=== PATIENT | male | born 1940 | race Caucasian/White ===

== ENCOUNTER 2016-02-14 06:46 | Day surgery (SDC) | payer MEDICARE, OTHER ==
[~2016-02-14] VITALS: Ht 182.9 cm; Wt 109.4 kg
[~2016-02-14 06:46] MED LIST: ASPIRIN81 MG PO; BAYER CHEWABLE81 MG PO; CARDURA1 MG PO; CORDARONE200 MG PO; EXFORGE 5-320 M1 TAB PO; FLOMAX0.4 MG PO; FLORAJEN3 CAPS460 MG PO; HYDROCODONE-APA1 TAB PO; KENALOG 0.1 % 115 GM; KLOR-CON 1010 MEQ PO; LASIX40 MG PO; MULTIPLE VITAMI1 TA1 PO; TESTOSTERON200 MG/ML IM; THERAGRAN M [BK1 TAB PO; VANCOMYCIN 1 GM/1 G1 IV; VIAGRA100 MG; VIBRAMYCIN 100100 MG PO; VITAMIN B-12250 MC3 PO; VITAMIN C250 MG PO; VYTORIN 10-20 M1 TAB PO
[2016-02-14 07:55] LABS: BASOPHILS 0.5 % (0.0-2.0); EOSINOPHILS 11.6 % (0-7); HEMATOCRIT 32.5 % (42.0-54.0); HEMOGLOBIN 10.4 g/dL (13.5-17.5); IMMATURE GRANULOCYTES 0.5 % (0-5); LYMPHOCYTES 19.9 % (15-50); MCH 27.8 pg (26.0-34.0); MCV 86.9 fL (80.0-100.0); MEAN PLATELET VOLUME 10.4 fL (7.4-10.4); MONOCYTES 11.5 % (2-11); PLATELET COUNT 211 10x3/uL (130-400); RBC 3.74 10x6/uL (4.20-6.10); RDW 14.3 % (11.5-14.5); WBC 6.6 10x3/uL (4.8-10.8)
[2016-02-14 08:05] LABS: CALCIUM 8.4 mg/dL (8.5-10.1); CARBON DIOXIDE 28.3 mmol/L (21.0-32.0); CREATININE - SERUM 1.5 mg/dL (0.6-1.3); POTASSIUM - SERUM 4.3 mmol/L (3.5-5.1); VANCOMYCIN - TROUGH 20.2 ug/mL (10.0-20.0)
--- NOTE | 2016-02-14 09:21 | NUR ---
0900-VANCOMYCIN TROUGH LEVEL SLIGHTLY ELEVATED--CALLED TO TONG HUDSON RN FOR DR ALVARADO. ORDERS RECD TO CONTINUE VANCOMYCON DOSAGE ORDERED.
[2016-02-14 10:01] VITALS: BP 166/87; Ht 182.9 cm; Wt 109.4 kg
--- NOTE | 2016-02-18 11:32 | OP ---
PATIENT NAME: MUSA GATES MEDICAL RECORD: [id number] :44 LOCATION:[facility] ADMISSION DATE: SURGEON: JAMES LANDEROS MD DATE OF OPERATION: 02/14/2016 SURGEON: James Landeros MD ANESTHESIA: General, Dr. Hilliard. OPERATION PERFORMED: Wound VAC dressing change. PREOPERATIVE DIAGNOSIS: Sternal dehiscence. POSTOPERATIVE DIAGNOSIS: Sternal dehiscence. INDICATION FOR OPERATION: Sternal dehiscence. FINDINGS AT OPERATION: Good granulation of the wound, clean without exudate. ESTIMATED BLOOD LOSS: None. DESCRIPTION OF PROCEDURE: After informed consent, adequate preoperative medication and evaluation, the patient was brought to the operating room, placed on the table in the supine position. After induction of general anesthesia and application of appropriate monitoring devices, chest prepped and draped in a sterile manner utilizing Betadine scrub, alcohol, and Betadine solution. A Betadine-impregnated drape was also used. The previous wound VAC had been removed. The white sponge was removed. The wound was irrigated and examined and expose wire was removed in the lower sternum. The wound was again irrigated. Instrument count and sponge count were correct times 2. A white dressing was placed in the depth of the wound, a small black sponge was then placed over this and a medium sponge placed in the major part of the wound. The dressing was applied. The device worked appropriately. The patient tolerated the procedure well and instrument counts and sponge counts were correct times 2. The patient returned to the postanesthesia recovery in satisfactory condition. TRANSINT:[id number] Voice Confirmation ID: [id number] DOCUMENT ID: [id number] JAMES LANDEROS MD at 1132 CC: [id number] DICTATION DATE: 02/14/16 1225 HEAD OF COMMISSION DEPARTMENT: 02/14/16 1234 [facility] 02/14/16 [place] [address]
== END 2016-02-14 13:57 | disposition home or self-care (01) ==
LOC: D.OPS 06:46
PROVIDERS: Internal Medicine Cardiovascular Disease
DX: T81.32XA Disruption of internal operation (surgical) wound, not elsewhere classified, initial encounter (principal)

== ENCOUNTER 2016-02-17 08:57 | Day surgery (SDC) | payer MEDICARE, OTHER ==
[~2016-02-17] VITALS: Ht 182.9 cm; Wt 108.0 kg
[2016-02-17 10:09] LABS: HEMATOCRIT 34.7 % (42.0-54.0); HEMOGLOBIN 11.1 g/dL (13.5-17.5); MCH 27.6 pg (26.0-34.0); MCV 86.3 fL (80.0-100.0); MEAN PLATELET VOLUME 10.3 fL (7.4-10.4); RBC 4.02 10x6/uL (4.20-6.10); RDW 14.3 % (11.5-14.5); WBC 6.2 10x3/uL (4.8-10.8)
[2016-02-17 10:12] VITALS: BP 143/94; Ht 182.9 cm; Wt 108.0 kg
[2016-02-17 10:18] LABS: ANION GAP 12.3 mmol/L (8-16); CALCIUM 9.6 mg/dL (8.5-10.1); CREATININE - SERUM 1.4 mg/dL (0.6-1.3); POTASSIUM - SERUM 4.3 mmol/L (3.5-5.1)
--- NOTE | 2016-02-17 14:06 | NUR ---
1350 REPORT FROM TOÑO ESCALANTE R.N. ASSESSED PATIENT RESTING WITH EYES CLOSED. RESP EVEN AND NONLABORED DENIES PAIN OR NAUSEA. HAS OWN WOUND VAC HOOKED TO CHEST AND WOUND AT CONTINUOUS SUCTION AT 75MMHG.
--- NOTE | 2016-02-17 15:39 | NUR ---
1500 DISCHARGE INSTRUCTIONS GIVEN AND VERBALLY UNDERSTANDS. HAS HOME HEALTH TO DO PICC LINE CARE AND OR DOES WOUND VAC DRESSING CHANGES. 1502 PICC RT ARM FLUSHED WITH SALINE AND HEPARIN FLUSH BOTH PORTS AND CAPPED WITH STERILE TECHNIQUE.1510 TO HOME WITH DAUGHTER.
--- NOTE | 2016-02-18 11:32 | OP ---
PATIENT NAME: MUSA GATES MEDICAL RECORD: [id number] :44 LOCATION:[facility] ADMISSION DATE: SURGEON: JAMES LANDEROS MD DATE OF OPERATION: 02/17/2016 SURGEON: James Landeros MD ANESTHESIA: General, Dr. Hilliard. OPERATION PERFORMED: Wound VAC dressing change. PREOPERATIVE DIAGNOSIS: Dehisced sternal wound. POSTOPERATIVE DIAGNOSIS: Dehisced sternal wound. INDICATION FOR OPERATION: Dehiscence of the sternal wound. FINDINGS AT OPERATION: Good granulation, good tissue base without exudate. ESTIMATED BLOOD LOSS: None. DESCRIPTION OF PROCEDURE: After informed consent, adequate preoperative medication evaluation, the patient was brought to the operating room, placed on the table in the supine position. After induction of general anesthesia and application of appropriate monitoring devices, the wound VAC dressing was removed. The patient prepped and draped in a sterile field, utilizing Betadine scrub, alcohol, and Betadine solution. A Betadine-impregnated drape was also used. The wound was examined and irrigated. There were no areas of debridement required. The wound was again irrigated. Instrument count and sponge count were correct times 2. A white sponge was placed in the depths of the wound over the right ventricle. A small sponge was then placed between the sternum and a superficial medium dressing sponge placed. The dressing was then placed and the device was tested. There was good suction without leak. The patient was awakened and transferred to postanesthesia recovery in satisfactory condition. TRANSINT:[id number] Voice Confirmation ID: [id number] DOCUMENT ID: [id number] JAMES LANDEROS MD at 1132 CC: [id number] DICTATION DATE: 02/17/16 1321 TRIMMING DEPARTMENT BLOCKER: 02/17/16 1440 [facility] 02/17/16 [place] [id number]
== END 2016-02-17 15:10 | disposition home or self-care (01) ==
LOC: D.OPS 08:57
PROVIDERS: Internal Medicine Cardiovascular Disease
DX: T81.31XA Disruption of external operation (surgical) wound, not elsewhere classified, initial encounter (principal)

== ENCOUNTER 2016-02-24 08:30 | Day surgery (SDC) | payer MEDICARE, OTHER ==
[~2016-02-24] VITALS: Ht 182.9 cm; Wt 108.9 kg
--- NOTE | ~2016-02-24 | HEMODYNAMI ---
PATIENT:MUSA GATES MEDICAL RECORD: [id number] : 44 [id number] ADMISSION DATE: 02/24/16 Generatedon:02/24/201614:20 Patient name: MUSA GATES Patient #: [id number] : 1940 Date of study: 02/24/2016 Page: Of Hemodynamic Procedure Report Patient Data Patient Demographics Procedure consent was obtained First Name: MUSA Gender: Male Last Name: YAJAIRA : 1940 [facility] Initial: R Age: 75 year(s) Patient #: [id number] Race: SSN: [id number] Additional ID: [id number] Contact details [address]: [address] [place] [address] State: [place] City: [place] Zip code: [address] Past Medical History Allergies: No known allergies Admission Admission Data Admission Date: 02/24/2016 Admission Time: 8:30 Procedure Procedure Types Cath Procedure Peripheral Cath Diagnostic Procedure US Vascular Access PICC PICC Line Placement Fluoro Fluoro Guidance Venous Device Procedure Description Procedure Date Procedure Date: 02/24/2016 Procedure Start Time: 14:05 Procedure End Time: 14:19 Procedure Staff Name Function Cricket Hernandez MD Performing Physician Robin Umanzor RT Scrub Eugenia Cleveland RN Nurse Jacqueline Raymond RT Pharmacy Services Director Jacqueline Raymond RT Monitor Procedure Data Cath Procedure Fluoroscopy Diagnostic fluoroscopy Total fluoroscopy Time: 0.4 time: 0.4 min min Diagnostic fluoroscopy Total fluoroscopy dose: dose: 13.5 mGy 13.5 mGy Procedure Medications Medication Administration Route Dosage Heparin Flush Bag added to field 1 bags (1000units/500ml NS) Lidocaine 1% added to field 20 Hemodynamics Rest Pre Cath Intra NCS Post Cath Vital Signs Time Heart Resp SPO2 NIBP (mmHg) Rhythm Pain Sedation Rate (ipm) (%) Status Level (bpm) 13:57:17 65 15 98 Measuring NSR 0 (11) 10(A) , No pain 13:57:34 66 17 97 155/86(136) NSR 0 (11) 10(A) , No pain 14:02:04 62 16 99 164/144(154) NSR 0 (11) 10(A) , No pain 14:06:20 69 16 99 154/94(129) NSR 0 (11) 10(A) , No pain 14:10:38 65 17 98 149/87(130) NSR 0 (11) 10(A) , No pain 14:14:52 65 18 98 147/88(129) NSR 0 (11) 10(A) , No pain 14:19:06 17 98 142/89(129) NSR 0 (11) 10(A) , No pain Medications Time Medication Route Dose Verified Delivered Reason Notes Effe ctiveness by by 13:43:29 Heparin Flush added 1 Eugenia Cricket used for Bag to bags King BOGDAN Hernandez procedure (1000units/500ml field ANGELO NS) 13:43:43 Lidocaine 1% added 20ml Eugenia Cricket for local to vial King BOGDAN Hernandez anesthetic field ANGELO Procedure Log Time Note 13:41:39 Time tracking: Regular hours 13:41:41 Cricket Hernandez MD sent for patient. Start room use. 13:41:49 Patient received from Outpatients to IR Alert and oriented. Tansferred to table in Supine position. 13:42:01 Signed procedure consent form obtained from verbally. 13:42:03 Pre-procedure instructions explained to patient. 13:42:59 Use device set PICC 13:43:01 Bag Decanter opened to sterile field. 13:43:02 Sterile Angiographic Pack opened to sterile field. 13:43:02 SorbaView Shield opened to sterile field. 13:43:05 Pre-op teaching completed and patient verbalized understanding. 13:43:10 Patient pain scale 0/10 ?. 13:43:15 Right Arm area was prepped with chlora-prep and draped in sterile fashion 13:43:25 PowerPICC 5Fr double lumen catheter opened to sterile field. 13:43:29 Heparin Flush Bag (1000units/500ml NS) 1 bags added to field was given by Cricket Hernandez MD; used for procedure; 13:43:43 Lidocaine 1% 20ml vial added to field was given by Cricket Hernandez MD; for local anesthetic; 13:43:52 Sedation plan: Local Anesthetic Lidocaine 13:43:54 Sharps counted by scrub and verified by R.N. 13:53:42 Full Disclosure recording started 13:55:28 Vital chart was started 14:01:59 Physician arrived 14:02:37 --------ALL STOP TIME OUT------ 14:02:39 Final Timeout: patient, procedure, and site verified with staff and physician. All members of the team are in agreement. 14:03:49 Procedure started. 14:05:07 Local anesthetic to right arm with Lidocaine 1% by Cricket Hernandez MD.INITIAL ACCESS ONLY 14:10:17 Venous access obtained using ultrasound guidance. 14:10:20 PICC line was trimmed to 40cm and advanced to the superior vena cava.Position verified under fluoroscopy. 14:12:52 Prexisting PICC was removed. Length was 40cm. 14:13:18 Fluoroscopy time 00.40 minutes. 14:13:22 Flurop Dose total: 13.5 14:13:22 Fluoroscopy dose: 13.5 mGy 14:14:56 SUTURE ETHILON 2-0 BLK MONO FS opened to sterile field. 14:16:09 PICC was secured to the right arm by 2.0 Ethilon sutures. 14:16:17 Sharps counted by scrub and verified by R.N. 14:16:19 Procedure ended.(Physican Out) 14:17:20 PICC was covered with a sorbaview and tegaderm. 14:18:59 Post procedure instruction explained to patient.Patient verbalizes understanding. 14:19:02 Procedure and supply charges have been captured, reviewed, submitted and are correct. 14:19:03 See physician's report for complete and final results. 14:19:09 Report given to Outpatients. 14:19:17 Patient transfered to Outpatients with Bed. 14:19:20 Procedure ended. 14:19:20 Full Disclosure recording stopped 14:19:43 End room use (Document Last) 14:20:06 Vital chart was stopped Device Usage Item Name Manufacture Quantity Catalog Hospital Part Current Minimal Lot# / Number Charge Number Stock Stock Serial# Code Bag Decanter Microtek 1 [id number] 5 [employer] Sterile Cardinal 1 [id number] Angiographic Health Pack SorbaView Centurion 1 [id number] 142775 [id number] [id number] 5 Shield [place] [address] [id number] 141688 [id number] 5 5Fr double lumen catheter SUTURE Ethicon 1 664 [id number] [id number] 5 ETHILON 2-0 BLK MONO FS Signature Audit [place] Stage Time Signature Unsigned Intra-Procedure 02/24/2016 Jacqueline Raymond 2:20:03 PM RT(R) Signatures Monitor : Jacqueline Raymond Signature : RT Date : Time : [place] [id number] [place] [address]
[2016-02-24 10:01] VITALS: BP 162/85; Ht 182.9 cm; Wt 108.9 kg
[2016-02-24 10:24] LABS: HEMATOCRIT 32.7 % (42.0-54.0); HEMOGLOBIN 10.3 g/dL (13.5-17.5); MCH 27.5 pg (26.0-34.0); MCHC 31.5 g/dL (31.0-37.0); MCV 87.2 fL (80.0-100.0); MEAN PLATELET VOLUME 10.7 fL (7.4-10.4); RBC 3.75 10x6/uL (4.20-6.10); RDW 14.3 % (11.5-14.5); WBC 5.7 10x3/uL (4.8-10.8)
[2016-02-24 10:34] LABS: ANION GAP 12.5 mmol/L (8-16); CALCIUM 9.5 mg/dL (8.5-10.1); CARBON DIOXIDE 29.2 mmol/L (21.0-32.0); CREATININE - SERUM 1.4 mg/dL (0.6-1.3); POTASSIUM - SERUM 4.7 mmol/L (3.5-5.1)
--- NOTE | 2016-02-24 19:27 | NUR ---
1430 TO FROM SPECIAL ,PICC LINE INPLACE, WOUND VAC INPLACE WITH GOOD SEAL IN USE . 1600 PICC LINE FLUSH WITH HEPRAIN AND CAPPED WAITIMG ON RIDE
--- NOTE | 2016-02-25 12:20 | OP ---
PATIENT NAME: MUSA GATES MEDICAL RECORD: [id number] :44 LOCATION:[facility] ADMISSION DATE: SURGEON: JAMES LANDEROS MD DATE OF OPERATION: 02/24/2016 SURGEON: James Landeros MD ANESTHESIA: General, Dr. Segovia. OPERATION PERFORMED: Wound VAC dressing change. PREOPERATIVE DIAGNOSIS: Sternal dehiscence. POSTOPERATIVE DIAGNOSIS: Sternal dehiscence. INDICATION FOR OPERATION: Wound VAC change. FINDINGS AT OPERATION: Good granulation in the wound. There was no necrotic area and no hardware noted. The patient is to have flap coverage by Dr. Moss in [place] in several days. ESTIMATED BLOOD LOSS: None. DESCRIPTION OF PROCEDURE: After informed consent, adequate preoperative medication evaluation, the patient was brought to the operating room, placed on the table in the supine position. After induction of general anesthesia and application of appropriate monitoring devices, the patient prepped and draped in a sterile field, utilizing Betadine scrub, alcohol, and Betadine solution. A Betadine-impregnated drape was also used. The previous sponges had been removed. The wound was examined and irrigated. There were no areas of necrosis and good granulation tissue throughout the wound. A white sponge was placed over the heart, followed by a small black sponge and a larger black sponge tailored to fit the wound. The dressing was then applied with good suction. The patient tolerated the procedure well and was transferred to postanesthesia recovery in satisfactory condition. TRANSINT:[id number] Voice Confirmation ID: [id number] DOCUMENT ID: [id number] JAMES LANDEROS MD at 1220 CC: [id number] DICTATION DATE: 02/24/16 1302 MICROWAVE REMOTE SENSING SCIENTIST: 02/24/16 1352 [facility] 02/24/16 [place] [id number]
== END 2016-02-24 16:24 | disposition home or self-care (01) ==
LOC: D.OPS 08:30
PROVIDERS: Internal Medicine Cardiovascular Disease
DX: T81.31XA Disruption of external operation (surgical) wound, not elsewhere classified, initial encounter (principal)

== ENCOUNTER → 2016-04-05 12:42 | Outpatient (CLI) | payer MEDICARE, OTHER ==
[2016-02-24 10:01] VITALS: BMI 32.6
[2016-04-05 12:58] LABS: HEMATOCRIT 32.9 % (42.0-54.0); HEMOGLOBIN 10.7 g/dL (13.5-17.5); MCH 26.8 pg (26.0-34.0); MCHC 32.5 g/dL (31.0-37.0); MCV 82.3 fL (80.0-100.0); MEAN PLATELET VOLUME 9.4 fL (7.4-10.4); RDW 14.8 % (11.5-14.5); WBC 6.1 10x3/uL (4.8-10.8)
[2016-04-05 13:04] LABS: ANION GAP 13.1 mmol/L (8-16); CALCIUM 9.9 mg/dL (8.5-10.1); CARBON DIOXIDE 29.1 mmol/L (21.0-32.0); CREATININE - SERUM 1.4 mg/dL (0.6-1.3); POTASSIUM - SERUM 4.2 mmol/L (3.5-5.1)
== END | disposition home or self-care (01) ==
LOC: D.LAB 08:15
PROVIDERS: Internal Medicine Cardiovascular Disease
DX: D64.9 Anemia, unspecified (principal); E87.6 Hypokalemia

== ENCOUNTER → 2016-12-19 08:23 | Outpatient (CLI) | payer MEDICARE, OTHER ==
[2016-02-24 10:01] VITALS: BMI 32.6
[~2016-12-19 08:23] MED LIST changes: +FUROSEMIDE20 MG PO; +LOPRESSOR25 MG PO; +ZETIA10 MG PO; +ZOCOR40 MG PO
== END | disposition home or self-care (01) ==
LOC: D.MRI 08:23
DX: M25.511 Pain in right shoulder (principal)

== ENCOUNTER 2017-01-01 08:22 | Day surgery (SDC) | payer MEDICARE, OTHER ==
[~2017-01-01] VITALS: Ht 182.9 cm; Wt 118.2 kg
[~2017-01-01 08:22] MED LIST changes: -FUROSEMIDE20 MG PO; -LOPRESSOR25 MG PO; -ZETIA10 MG PO; -ZOCOR40 MG PO
[2017-01-01] MEDS ORDERED: FUROSEMIDE20 MG PO (09:04)
[2017-01-01] MEDS ORDERED: BAYER CHEWABLE81 MG PO (09:05)
[2017-01-01 09:08] LABS: BASOPHILS 0.2 % (0-2); EOSINOPHILS 5.1 % (0-7); HEMATOCRIT 42.6 % (42.0-54.0); HEMOGLOBIN 13.6 g/dL (13.5-17.5); IMMATURE GRANULOCYTES 0.2 % (0-5); LYMPHOCYTES 20.9 % (15-50); MCH 27.4 pg (26.0-34.0); MCHC 31.9 g/dL (31.0-37.0); MCV 85.9 fL (80.0-100.0); MEAN PLATELET VOLUME 10.2 fL (7.4-10.4); MONOCYTES 11.2 % (2-11); NEUTROPHILS 62.4 % (40-80); PLATELET COUNT 165 10x3/uL (130-400); RBC 4.96 10x6/uL (4.20-6.10); RDW 16.3 % (11.5-14.5); WBC 6.1 10x3/uL (4.8-10.8)
[2017-01-01] MEDS ORDERED: ZETIA10 MG PO (09:08)
[2017-01-01] MEDS ORDERED: LOPRESSOR25 MG PO (09:08)
[2017-01-01] MEDS ORDERED: ZOCOR40 MG PO (09:08)
[2017-01-01 09:14] LABS: ANION GAP 12.3 mmol/L (8-16); CALCIUM 8.8 mg/dL (8.5-10.1); CARBON DIOXIDE 29.5 mmol/L (21.0-32.0); CREATININE - SERUM 1.3 mg/dL (0.6-1.3); POTASSIUM - SERUM 3.8 mmol/L (3.5-5.1)
[2017-01-01 09:26] VITALS: BP 158/82; Ht 182.9 cm; Wt 118.2 kg
--- NOTE | 2017-01-01 11:40 | NUR ---
PT REC'D TO ROOM. DROWSY, BUT RESPONDS TO VERBAL STIMULI. LEMON SHAKTOOLIK SODA REQUESTED AND PROVIDED.
--- NOTE | 2017-01-01 12:00 | NUR ---
PT TOLERATED FULL LIQUID DIET.
--- NOTE | 2017-01-01 12:30 | NUR ---
D/C INSTRUCTIONS EXPLAINED TO PT. VOICED UNDERSTANDING. COPIES OF ALL GIVEN.
--- NOTE | 2017-01-01 12:45 | NUR ---
D/C'D HOME VIA W/C TO PRIVATE CAR.
--- NOTE | 2017-01-08 15:43 | HP ---
PATIENT: MUSA GATES MEDICAL RECORD: [id number] ACCOUNT: [id number] LOCATION:[facility] : 44 ADMISSION DATE: 01/01/17 HISTORY AND PHYSICAL EXAMINATION CHIEF COMPLAINT: History of colon polyps. HISTORY OF PRESENT ILLNESS: The patient is here for surveillance colonoscopy. He has had no symptoms. ALLERGIES: No known drug allergies. HOME MEDICATIONS: Cardura, Damon, Klor-Con, testosterone, Zetia, Zocor, aspirin, Lasix, multivitamin, Toprol. SOCIAL HISTORY: Nonsmoker. PAST MEDICAL AND SURGICAL HISTORY: Bronchitis, sleep apnea, coronary artery disease, hypertension, history of CABG times 5, history of hernia repair, history of bladder surgery, history of wound VACs, history of appendectomy, history vasectomy, history of cholecystectomy, history of muscle flap. REVIEW OF SYSTEMS: Negative for CVA or seizures. Negative for diabetes or thyroid problems. PHYSICAL EXAMINATION: GENERAL: The patient does not appear acutely ill. He does not appear chronically ill. VITAL SIGNS: Reviewed. EARS: External ears appear normal. EYES: Extraocular movements are intact. NECK: Trachea is midline. CHEST: No intercostal retractions. PULMONARY: Nonlabored. No stridor. IMPRESSION: History of colon polyps. PLAN: Will be surveillance colonoscopy. TRANSINT:[id number] Voice Confirmation ID: [id number] DOCUMENT ID: [id number] CC: Dr. Mendoza, not found. EILEEN CHRISTIAN MD at 1543 CC: SLADE BULLOCK MD and JAMES ALVARADO MD [id number] DICTATION DATE: 01/01/17 1038 SUPERVISOR PIPE JOINTS: 01/01/17 1107 [facility] 01/01/17 [place] [id number] [place] [address]
--- NOTE | 2017-01-08 15:43 | OP ---
PATIENT NAME: MUSA GATES MEDICAL RECORD: [id number] :44 LOCATION:[facility] ADMISSION DATE: SURGEON: CHAVEZ CHRISTIAN MD DATE OF OPERATION: 01/01/2017 PREOPERATIVE DIAGNOSIS: History of colon polyps, in need of a surveillance colonoscopy. POSTOPERATIVE DIAGNOSES: History of colon polyps, in need of a surveillance colonoscopy, with 5 colon and rectal polyps, all sessile. Enlarged internal and external hemorrhoids. PROCEDURES: 1. Total colonoscopy to cecum. 2. Hot biopsy forceps polypectomies times 5. SURGEON: Chavez Christian MD SALES AND TRAINING SPECIALIST: None. BLOOD LOSS: Minimal. ANESTHESIA: IV sedation. COMPLICATIONS: None. The risks, possible complications, and alternatives to the procedure were explained to the patient. A consent form was signed. ENDOSCOPIC COURSE: The patient was conveyed to the GI lab on 01/01/2017. IV sedation was induced by the anesthesia staff. The patient was placed in the [place] position. A digital rectal examination was performed. Prostate was enlarged, but symmetric and without nodules. A colonoscope was inserted through the anus. It was easily advanced to the cecum. The prep was adequate. Upon withdrawal, I slowly withdrew the endoscope. I irrigated and aspirated extensively. I dragged the folds. A combination of direct imaging as well as narrow band imaging was utilized. Five colorectal polyps were noted. These were incised from 7 mm to 1.0 cm. None of these were pedunculated. A retroflexed view was obtained in the rectum. I then un-retroflexed the scope and removed it under direct vision. PLAN: I will plan to see the patient in my office in 2-3 weeks. I will plan for his next colonoscopy to take place in 3 years. TRANSINT:[id number] Voice Confirmation ID: [id number] DOCUMENT ID: [id number] OPERATIVE REPORT [id number] GATESMUSA ROBERT MD at 1543 CC: SLADE BULLOCK MD [id number] DICTATION DATE: 01/01/177 AUTOMATIC CLIPPER AND STRIPPER: 01/01/17 1214 [facility] 01/01/17 [place] [address]
== END 2017-01-01 12:45 | disposition home or self-care (01) ==
LOC: D.OPS 08:22
PROVIDERS: Anesthesiology
DX: Z12.11 Encounter for screening for malignant neoplasm of colon (principal); D12.2 Benign neoplasm of ascending colon; D12.0 Benign neoplasm of cecum; D12.4 Benign neoplasm of descending colon; K63.5 Polyp of colon; K62.1 Rectal polyp; K64.8 Other hemorrhoids; K64.4 Residual hemorrhoidal skin tags; Z86.010 Personal history of colon polyps; N40.0 Benign prostatic hyperplasia without lower urinary tract symptoms; G47.30 Sleep apnea, unspecified; I25.10 Atherosclerotic heart disease of native coronary artery without angina pectoris; Z95.1 Presence of aortocoronary bypass graft; I10 Essential (primary) hypertension; Z79.891 Long term (current) use of opiate analgesic; Z79.890 Hormone replacement therapy; Z79.82 Long term (current) use of aspirin; Z79.899 Other long term (current) drug therapy; Z01.812 Encounter for preprocedural laboratory examination

== ENCOUNTER 2017-01-14 10:12 | Day surgery (SDC) | payer MEDICARE, OTHER ==
[2017-01-11 08:19] LABS: HEMATOCRIT 40.8 % (42.0-54.0); HEMOGLOBIN 13.3 g/dL (13.5-17.5); MCH 27.3 pg (26.0-34.0); MCHC 32.6 g/dL (31.0-37.0); MCV 83.6 fL (80.0-100.0); MEAN PLATELET VOLUME 9.3 fL (7.4-10.4); RBC 4.88 10x6/uL (4.20-6.10); RDW 16.4 % (11.5-14.5); WBC 7.3 10x3/uL (4.8-10.8)
[2017-01-11 08:21] LABS: ANION GAP 12.6 mmol/L (8-16); CALCIUM 8.5 mg/dL (8.5-10.1); CARBON DIOXIDE 27.9 mmol/L (21.0-32.0); CREATININE - SERUM 1.2 mg/dL (0.6-1.3); POTASSIUM - SERUM 3.5 mmol/L (3.5-5.1)
[~2017-01-14] VITALS: Ht 182.9 cm; Wt 113.4 kg
[~2017-01-14 10:12] MED LIST changes: +FUROSEMIDE20 MG PO; +LOPRESSOR25 MG PO; +ZETIA10 MG PO; +ZOCOR40 MG PO
[2017-01-14 13:49] VITALS: BP 177/91; Ht 182.9 cm; Wt 113.4 kg
[2017-01-14] MEDS ORDERED: HYDROCODONE-APA1 TAB PO (16:44)
--- NOTE | 2017-01-28 17:58 | OP ---
PATIENT NAME: MUSA GATES MEDICAL RECORD: [id number] :44 LOCATION:[facility] ADMISSION DATE: SURGEON: MANDO EVANS MD DATE OF OPERATION: 01/14/2017 DATE OF OPERATION: 01/14/2017 PREOPERATIVE DIAGNOSES: Rotator cuff tear of the right shoulder, impingement syndrome and acromioclavicular arthritis. POSTOPERATIVE DIAGNOSES: Rotator cuff tear of the right shoulder, impingement syndrome and acromioclavicular arthritis. PROCEDURES: 1. Arthroscopic rotator cuff repair. 2. Arthroscopic distal clavicle excision done through separate incision - 1 cm. 3. Arthroscopic subacromial decompression, acromioplasty and bursectomy. SURGEON: Mando Evans MD ANESTHESIA: General. INTRAOPERATIVE COMPLICATIONS: None. SUMMARY OF PATHOLOGIC FINDINGS: The patient had consistent findings that are consistent with the preoperative MRI. Intraoperative photographs were taken of the full thickness rotator cuff tear. The patient had excoriation of the coracoacromial ligament as well as AC arthropathy. OPERATIVE SUMMARY IN DETAIL: After obtaining the appropriate preoperative orthopedic surgery consent as well as anesthetic consultation, evaluation and clearance, the patient was brought to the operating room and placed on the operating table in supine position. After general laryngeal mask airway was administered, the patient was placed in left lateral decubitus position. All pressure points were well padded to include down leg peroneal pad as well as axillary roll. The patient was held firmly to the operating table using the vacuum pack suction system. Right upper extremity and shoulder were prepped and draped in routine sterile fashion. The arm was held in the Arthrex traction boom at 30 degrees of forward flexion, 30 degrees of abduction, 10 pounds of traction laterally. Arthroscopy was established in the glenohumeral joint from posterior portal. Anterior portal was established in the anterior safe interval. Diagnostic arthroscopy did reveal the above findings. A transarthroscopic rotator cuff portal was created for debridement of the cuff footprint on the closest to the articular side. Attention was then turned to the subacromial space. [place] tissue ablation system was utilized to denude the undersurface of the acromion of all soft tissue elements and release coracoacromial ligament. A 5-0 barrel bur was used to perform acromioplasty at the level of acromioclavicular joint. Through a separate anterior arthroscopic portal, the distal clavicle was excised for 1 cm and the medial osteophytes of the AC joint on the acromion were taken down as well. Having completed this, attention was turned to the rotator cuff. Further decortication was carried out on the lateral aspect of the supraspinatus tendinous footprint. A single #2 FiberWire and FiberTape was placed in an inverted mattress fashion and then anchored laterally with a 5.5 SwiveLock from Arthrex. Having completed this, arthroscopy portals were closed in routine interrupted fashion using 4-0 OPERATIVE REPORT [id number] MUSA GATES Prolene. Sterile dressings were applied. The patient was awakened and taken to the recovery room in stable condition. All final needle and sponge counts were correct. TRANSINT:[id number] Voice Confirmation ID: [id number] DOCUMENT ID: [id number] CRISTINA ANGELO, MANDO MCCOLLUM at 1758 CC: [id number] DICTATION DATE: 01/28/17 1532 LABORER AIRPORT MAINTENANCE: 01/28/17 1632 [facility] 01/14/17 [facility] [address] [place] [address]
== END 2017-01-14 19:00 | disposition home or self-care (01) ==
LOC: D.OPS 10:12 → D.PAN 12:15 → D.OPS 12:45
PROVIDERS: Anesthesiology
DX: M75.101 Unspecified rotator cuff tear or rupture of right shoulder, not specified as traumatic (principal); M75.41 Impingement syndrome of right shoulder; M19.011 Primary osteoarthritis, right shoulder; I25.10 Atherosclerotic heart disease of native coronary artery without angina pectoris; I10 Essential (primary) hypertension; G47.30 Sleep apnea, unspecified; E66.01 Morbid (severe) obesity due to excess calories; Z68.34 Body mass index [BMI] 34.0-34.9, adult; Z01.812 Encounter for preprocedural laboratory examination

== ENCOUNTER → 2019-01-14 13:02 | Outpatient (CLI) | payer MEDICARE, OTHER ==
[2017-01-14 13:49] VITALS: BMI 34.0
--- NOTE | 2019-01-14 14:20 | NUR ---
TIME OUT PERFORMED @ [address] KENNEDY & EDGAR DASH RTR. PATIENT, , & PROCEDURE VERIFIED.
== END | disposition home or self-care (01) ==
LOC: D.RAD 13:02
PROVIDERS: ATTEND Orthopaedic Surgery
DX: M75.122 Complete rotator cuff tear or rupture of left shoulder, not specified as traumatic (principal)

== ENCOUNTER 2019-02-16 08:10 | Day surgery (SDC) | payer MEDICARE, OTHER ==
[2019-02-13 10:27] LABS: HEMATOCRIT 40.8 % (42.0-54.0); HEMOGLOBIN 13.3 g/dL (13.5-17.5); MCH 28.2 pg (26.0-34.0); MCHC 32.6 g/dL (31.0-37.0); MCV 86.4 fL (80.0-100.0); MEAN PLATELET VOLUME 9.8 fL (7.4-10.4); RBC 4.72 10x6/uL (4.20-6.10); RDW 14.3 % (11.5-14.5); WBC 7.2 10x3/uL (4.8-10.8)
[2019-02-13 10:32] LABS: ANION GAP 12.9 mmol/L (8-16); CALCIUM 8.9 mg/dL (8.5-10.1); CARBON DIOXIDE 30.9 mmol/L (21.0-32.0); CREATININE - SERUM 1.6 mg/dL (0.6-1.3); POTASSIUM - SERUM 3.8 mmol/L (3.5-5.1)
[~2019-02-16] VITALS: Ht 182.9 cm; Wt 122.5 kg
[~2019-02-16 08:10] MED LIST changes: +ANASTROZOLE PO; +TESTOSTERONE IM
[2019-02-16 08:54] VITALS: BP 141/75; Ht 182.9 cm; Wt 122.5 kg
[2019-02-16] MEDS ORDERED: HYDROCODON-ACE1 EA10 PO (12:07)
--- NOTE | 2019-02-19 10:27 | OP ---
PATIENT NAME: MUSA GATES MEDICAL RECORD: [id number] :44 LOCATION:[facility] ADMISSION DATE: SURGEON: CRISTINA ANGELO, MANDO MCCOLLUM DATE OF OPERATION: 02/16/2019 PREOPERATIVE DIAGNOSES: 1. Impingement syndrome of the left shoulder. 2. Rotator cuff tear of the left shoulder. POSTOPERATIVE DIAGNOSES: 1. Impingement syndrome of the left shoulder. 2. Rotator cuff tear of the left shoulder. 3. Severe biceps tendinitis. PROCEDURES: 1. Open rotator cuff repair. 2. Arthroscopic biceps tenodesis. 3. Arthroscopic distal clavicle excision done through separate incision x1. 5. Arthroscopic subacromial decompression with acromioplasty and bursectomy. SURGEON: Mando Evans MD ANESTHESIA: General. INTRAOPERATIVE COMPLICATIONS: None. SUMMARY OF PATHOLOGIC FINDINGS: Consistent with the preoperative diagnosis made a very large rotator cuff tear. The biceps tendon was in very bad shape with a greater than 50% thickness tearing. A decision made to do a biceps tenodesis along with an open rotator cuff repair using double row fixation. The patient had a downward sloping acromion with excoriation of the coracoacromial ligament as well as grade IV chondromalacia distal clavicle. OPERATIVE SUMMARY IN DETAIL: After obtaining the appropriate preoperative orthopedic surgery consents as well as anesthetic consultation, evaluation and clearance, the patient was brought to the operating room and placed on the operating table in supine position. After general laryngeal mask airway was administered, the patient was placed in right lateral decubitus position. All pressure points well padded to include down leg peroneal pad as well as axillary roll. The patient was held firmly to the operating table using vacuum pack suction system. Left upper extremity and shoulder were prepped and draped in routine sterile fashion. The arm was held in the [employer] traction boom at 30 of flexion, 30 degrees of abduction with 10 pounds of traction laterally. At this point, the appropriate surgical timeout was taken and agreed upon by all. Arthroscopy was established in the glenohumeral joint for postoperative posterior portal. Anterior portal was established in the anterior safe interval. Diagnostic arthroscopy did reveal the above findings. Accessory tertiary portal was created for debridement of the rotator cuff tear and excoriation of the greater tuberosity of the supraspinatus tendinous explant. At this point, the biceps tendon was tied with multiple passes using the [employer] TightRope using the scorpion passer. The biceps tendon was then released at the bicipital labral junction. A guide pin was then put into place under direct visualization followed by creating the extra single cortical hole for the size 8 biceps tenodesis. Tenodesis screw was then put into place with excellent position and placement. Excess biceps tendon was removed. At this point, the OPERATIVE REPORT [id number] MUSA GATES R lateral and based incision was made, taken down to the level of the rotator cuff tear. Further decortication was then followed by placement of the proximal row screws of the [employer] double row construct. These were then placed through the rotator cuff tear. The single tail swage was then split into 2 tails crisscross was done in the usual fashion and then anchored laterally with a lateral row. This resulted in excellent fixation was one small dog ear. The #2 FiberWire from the posterior lateral anchor was then utilized to pass through the dog ear was anchored again laterally using a 4.75 self-punching SwiveLock from [employer]. Having completed this, the wound was copiously irrigated and closed in the usual fashion by Jose Mireles APN with #1 Vicryl followed by 2-0 Vicryl and 4-0 Prolene. Sterile dressings were applied. The patient was awakened and taken to the recovery room in stable condition. All final needle and sponge counts were correct. TRANSINT:[id number] Voice Confirmation ID: [id number] DOCUMENT ID: [id number] CRISTINA ANGELO, MANDO MCCOLLUM at 1027 CC: [id number] DICTATION DATE: 02/16/19 1216 TELLER VAULT: 02/16/19 1647 [facility] 02/16/19 [facility] [address] [place] [address]
== END 2019-02-16 15:10 | disposition home or self-care (01) ==
LOC: D.OPS 08:10 → D.PAN 11:10 → D.OPS 11:10 → D.PAN 12:30 → D.OPS 13:00
PROVIDERS: Anesthesiology; ATTEND Orthopaedic Surgery
DX: M75.122 Complete rotator cuff tear or rupture of left shoulder, not specified as traumatic (principal); M75.42 Impingement syndrome of left shoulder; M75.22 Bicipital tendinitis, left shoulder; E78.5 Hyperlipidemia, unspecified; I10 Essential (primary) hypertension; I25.10 Atherosclerotic heart disease of native coronary artery without angina pectoris

== ENCOUNTER 2020-06-30 11:32 | Emergency (ER) | payer MEDICARE, OTHER ==
[~2020-06-30] VITALS: Ht 182.9 cm; Wt 127.3 kg
[~2020-06-30 11:32] MED LIST changes: +HYDROCODON-ACE1 EA10 PO
[2020-06-30 11:35] VITALS: Ht 182.9 cm; Wt 127.3 kg
[2020-06-30 11:59] VITALS: BP 127/88
[2020-06-30 12:03] LABS: BASOPHILS 0.9 % (0-2); HEMATOCRIT 36.3 % (42.0-54.0); HEMOGLOBIN 10.9 g/dL (13.5-17.5); LYMPHOCYTES 17.6 % (15-50); MCH 20.5 pg (26.0-34.0); MCV 68.3 fL (80.0-100.0); MEAN PLATELET VOLUME 7.7 fL (7.4-10.4); MONOCYTES 13.4 % (2-11); NEUTROPHILS 64.1 % (40-80); PLATELET COUNT 252 10x3/uL (130-400); RBC 5.31 10x6/uL (4.20-6.10); WBC 5.7 10x3/uL (4.8-10.8)
[2020-06-30 12:06] LABS: CALC OSMOLALITY 273 mosm/kg (275-300); CALCIUM 9.3 mg/dL (8.5-10.1); CARBON DIOXIDE 30.2 mmol/L (21.0-32.0); CHLORIDE - SERUM 98 mmol/L (98-107); CREATININE - SERUM 1.8 mg/dL (0.6-1.3); GLUCOSE 117 mg/dL (74-106); POTASSIUM - SERUM 3.3 mmol/L (3.5-5.1); SODIUM 137 mmol/L (136-145); UREA NITROGEN 10 mg/dL (7-18); eGFR NON AFRICAN AMERICAN 39 mL/min (90-120)
[2020-06-30 12:09] LABS: APTT 30.9 SECONDS (22.8-39.4); INR 1.19 (0.85-1.17)
[2020-06-30 12:23] LABS: ALBUMIN 3.7 g/dL (3.4-5.0); ALKALINE PHOSPHATASE 87 U/L (30-120); ALT (SGPT) 32 U/L (10-68); BILIRUBIN - TOTAL 0.83 mg/dL (0.2-1.3); CKMB 9.3 U/L (0.0-3.6); CREATINE KINASE 238 UL (21-232); PROTEIN - SERUM 7.3 g/dL (6.4-8.2); TROPONIN-I 0.019 ng/mL (0.000-0.060)
[2020-06-30] MEDS ORDERED: CARDIZEM CD180 MG PO (14:05)
[2020-06-30] MEDS ORDERED: TOPROL XL50 MG PO (14:05)
== END 2020-06-30 15:03 | disposition home or self-care (01) ==
LOC: D.ER 11:32
PROVIDERS: Emergency Medicine
DX: I48.91 Unspecified atrial fibrillation (principal); I10 Essential (primary) hypertension; R06.02 Shortness of breath

== ENCOUNTER 2020-08-05 07:57 | Emergency (ER) | payer MEDICARE, OTHER ==
[~2020-08-05] VITALS: Ht 182.9 cm; Wt 127.3 kg
[~2020-08-05 07:57] MED LIST changes: +CARDIZEM CD180 MG PO; +TOPROL XL50 MG PO
[2020-08-05 08:04] VITALS: Ht 182.9 cm; Wt 127.3 kg
[2020-08-05 08:46] LABS: BASOPHILS 0.1 % (0-2); EOSINOPHILS 2.6 % (0-7); HEMATOCRIT 35.1 % (42.0-54.0); HEMOGLOBIN 10.7 g/dL (13.5-17.5); LYMPHOCYTES 7.4 % (15-50); MCH 20.8 pg (26.0-34.0); MCHC 30.4 g/dL (31.0-37.0); MCV 68.3 fL (80.0-100.0); MEAN PLATELET VOLUME 7.8 fL (7.4-10.4); MONOCYTES 11.6 % (2-11); NEUTROPHILS 78.3 % (40-80); PLATELET COUNT 231 10x3/uL (130-400); RBC 5.13 10x6/uL (4.20-6.10); RDW 19.5 % (11.5-14.5); WBC 9.3 10x3/uL (4.8-10.8)
[2020-08-05 09:02] LABS: CALC OSMOLALITY 271 mosm/kg (275-300); CALCIUM 9.1 mg/dL (8.5-10.1); CARBON DIOXIDE 31.2 mmol/L (21.0-32.0); CHLORIDE - SERUM 98 mmol/L (98-107); CREATININE - SERUM 1.8 mg/dL (0.6-1.3); GLUCOSE 129 mg/dL (74-106); POTASSIUM - SERUM 3.6 mmol/L (3.5-5.1); SODIUM 135 mmol/L (136-145); UREA NITROGEN 12 mg/dL (7-18); eGFR NON AFRICAN AMERICAN 39 mL/min (90-120)
[2020-08-05 09:21] LABS: ALBUMIN 3.8 g/dL (3.4-5.0); ALKALINE PHOSPHATASE 85 U/L (30-120); ALT (SGPT) 27 U/L (10-68); BILIRUBIN - TOTAL 1.22 mg/dL (0.2-1.3); CKMB 3.9 U/L (0.0-3.6); CREATINE KINASE 235 UL (21-232); PROTEIN - SERUM 7.2 g/dL (6.4-8.2)
[2020-08-05 09:27] LABS: TROPONIN-I < 0.017 ng/mL (0.000-0.060)
[2020-08-05] MEDS ORDERED: CLINDAMYCIN HC300 MG PO (10:01)
[2020-08-05] MEDS ORDERED: FLUTICASONE PRO16 GM NASAL (10:01)
[2020-08-05 10:42] VITALS: BP 105/85
== END 2020-08-05 10:43 | disposition home or self-care (01) ==
LOC: D.ER 07:57
PROVIDERS: Family Medicine
DX: J18.9 Pneumonia, unspecified organism (principal); J01.90 Acute sinusitis, unspecified; I10 Essential (primary) hypertension

== ENCOUNTER 2020-08-08 07:32 | Emergency (ER) | payer MEDICARE, OTHER ==
[~2020-08-08] VITALS: Ht 182.9 cm; Wt 127.3 kg
[~2020-08-08 07:32] MED LIST changes: +CLINDAMYCIN HC300 MG PO; +FLUTICASONE PRO16 GM NASAL
[2020-08-08 07:39] VITALS: Ht 182.9 cm; Wt 127.3 kg
[2020-08-08 08:37] LABS: BASOPHILS 0.5 % (0-2); EOSINOPHILS 7.9 % (0-7); HEMATOCRIT 36.4 % (42.0-54.0); HEMOGLOBIN 11.1 g/dL (13.5-17.5); LYMPHOCYTES 16.5 % (15-50); MCH 20.8 pg (26.0-34.0); MCHC 30.5 g/dL (31.0-37.0); MCV 68.2 fL (80.0-100.0); MEAN PLATELET VOLUME 8.4 fL (7.4-10.4); MONOCYTES 16.6 % (2-11); NEUTROPHILS 58.5 % (40-80); PLATELET COUNT 227 10x3/uL (130-400); RBC 5.34 10x6/uL (4.20-6.10); RDW 20.1 % (11.5-14.5); WBC 5.2 10x3/uL (4.8-10.8)
[2020-08-08 08:42] LABS: CALC OSMOLALITY 267 mosm/kg (275-300); CALCIUM 8.6 mg/dL (8.5-10.1); CARBON DIOXIDE 32.7 mmol/L (21.0-32.0); CHLORIDE - SERUM 98 mmol/L (98-107); CREATININE - SERUM 1.7 mg/dL (0.6-1.3); GLUCOSE 150 mg/dL (74-106); SODIUM 133 mmol/L (136-145); UREA NITROGEN 11 mg/dL (7-18); eGFR NON AFRICAN AMERICAN 42 mL/min (90-120)
[2020-08-08 08:55] LABS: ALBUMIN 3.7 g/dL (3.4-5.0); ALKALINE PHOSPHATASE 88 U/L (30-120); ALT (SGPT) 30 U/L (10-68); BILIRUBIN - TOTAL 0.82 mg/dL (0.2-1.3); PRO BNP 1156 pg/mL (0-450); PROTEIN - SERUM 7.4 g/dL (6.4-8.2)
[2020-08-08 09:01] LABS: TROPONIN-I < 0.017 ng/mL (0.000-0.060)
[2020-08-08 09:04] LABS: SARS-CoV-2 ANTIGEN NEGATIVE- SARS-COV-2 (NEGATIVE)
[2020-08-08 11:01] VITALS: BP 122/88
== END 2020-08-08 11:02 | disposition home or self-care (01) ==
LOC: D.ER 07:32
PROVIDERS: Emergency Medicine
DX: R05 Cough (principal); R55 Syncope and collapse; I10 Essential (primary) hypertension